=== PATIENT | female | born 1980 | race Caucasian/White ===

== ENCOUNTER → 2016-11-17 | Outpatient (CLI) | payer BC ==
[2016-11-17 16:39] VITALS: BP 120/72
== END ==
LOC: MHUC 15:54
PROVIDERS: ATTEND Physician Assistant
DX: H65.03 Acute serous otitis media, bilateral (principal); J11.1 Influenza due to unidentified influenza virus with other respiratory manifestations
CPT/HCPCS: 99213

== ENCOUNTER → 2016-11-21 | Outpatient (CLI) | payer BC ==
[2016-11-21 13:46] VITALS: BP 112/88
== END ==
LOC: MHUC 13:24
PROVIDERS: ATTEND Nurse Practitioner
DX: H66.001 Acute suppurative otitis media without spontaneous rupture of ear drum, right ear (principal)
CPT/HCPCS: 99213

== ENCOUNTER → 2017-01-27 | Outpatient (CLI) | payer BC ==
[~2017-01-27] MED LIST: AMOX875T2 PO; AZIT250T81 PO; CODE-54 PO; FLUT16SP NS; NO HOME MEDICATIONS; PRED20TA PO
[2017-01-27 13:00] VITALS: BP 119/85
--- NOTE | 2017-01-27 13:00 | Urgent Care T Sheet Gen (E) ---
Intake General Temperature (Fahrenheit): 99.3 Pulse: 83 Blood Pressure Systolic: 119 Blood Pressure Diastolic: 85 Respirations: 20 SPO2: 96 Description of Symptoms Patient presents with illness since Thursday. Notes chest congestion, cough which is worse at night, malaise. Has felt feverish today. Been taking Sudafed for congestion. History of Present Illness Allergies: Coded Allergies: morphine (Unverified Allergy, Unknown, ITCHING, 02/10/14) Home Meds Active Scripts Prednisone 20 Mg [id number] Mg PO DAILY #6 TAB Prov:ASHLEY MOORE 01/27/17 Azithromycin (Zithromax Z-Arnulfo)6 Tab/Pkt [id number] Mg PO SEE INSTRUCTIONS #6 TAB Ref 0 Day One: Take 2 tablets by mouth Days Two-Five: Take 1 tablet by mouth Prov:ASHLEY MOORE 01/27/17 Fluticasone Propionate 16 Gm [place].susp16 Gm NS DAILY #1 BTL 2 sprays each nare x 7 days Prov:SKYLER BELTRAN APRN () 11/21/16 Amoxicillin 875 Mg Hzshia448 Mg PO BID #20 TAB Ref 0 Prov:SKYLER BELTRAN APRN () 11/21/16 Azithromycin (Zithromax Z-Arnulfo)6 Tab/Pkt [id number] Mg PO SEE INSTRUCTIONS #6 TAB Ref 0 Day One: Take 2 tablets by mouth Days Two-Five: Take 1 tablet by mouth Prov:ASHLEY MOORE 11/17/16 Azithromycin (Zithromax Z-Arnulfo)6 Tab/Pkt [id number] Mg PO SEE INSTRUCTIONS #6 TAB Ref 0 Day One: Take 2 tablets by mouth Days Two-Five: Take 1 tablet by mouth Prov:ASHLEY MOORE 05/14/16 Acetaminophen/Codeine (Tylenol W/Codeine #3 (300mg/30mg))1 Tab Tablet1 Tab PO q6 hrs PRN PAIN #10 Prov:LARISA MICHELLE DO 02/10/14 Reported Medications No Home Medications Ea As Needed 02/10/14 Respiratory Constitutional Symptoms: Fever Malaise EENTM: No symptoms reported Respiratory: Cough Short of breath Wheezing Cardiovascular: No symptoms reported Gastrointestinal/Abdominal: No symptoms reported All Other Systems Reviewed Remaining Systems: All other systems reviewed with negative findings Past Miueohr-Mtqcbx-Jrwgre Hx Patient's Social History Alcohol Use: Denies Use Surgeries/Hospitalizations Hospitalization/Surgery Hx: TUBES TIED Respiratory Respiratory History: None Cardiovascular Cardiovascular History: None Reproductive System Sexually Transmitted Diseases: No Gastrointestinal GI/Endocrine History: None Diabetes Diabetes: No HEENT Impaired Vision: Contacts Hearing Impaired: None Psychosocial Behavior Disorders: None Physical Exam Physical Exam General Appearance: WD/WN No apparent distress Eyes, Ears, Nose, Throat Ex: TMs normal Pharynx normal Other (nose is clear) Neck Exam: SuppleNo Lymphadenopathy Respiratory Exam: Rhonchi Wheezes Cardiovascular Exam: Regular rate, rhythm Departure Urgent Care Impression Impression: Primary Impression: Bronchitis Additional Impression: Wheezes Departure Disposition: HOME OR SELF-CARE Condition: Stable Referrals: FEROZ GONZALEZ MD (PCP) Additional Instructions: I have started the patient on Zpak for infection and Prednisone for inflammation /wheezing. No NSAIDs while on steroid, Tylenol as needed for fever and aches Rest. Fluids Return as needed Patient understands DC instructions. All questions were answered. Scripts Prednisone 20 Mg [id number] Mg PO DAILY #6 TAB Prov:ASHLEY MOORE 01/27/17 Azithromycin (Zithromax Z-Arnulfo)6 Tab/Pkt [id number] Mg PO SEE INSTRUCTIONS #6 TAB Ref 0 Day One: Take 2 tablets by mouth Days Two-Five: Take 1 tablet by mouth Prov:ASHLEY MOORE 01/27/17 End of report . ASHLEY MOORE January 27, 2017 12:55
== END ==
LOC: MHUC 12:39
PROVIDERS: ATTEND Physician Assistant
DX: J40 Bronchitis, not specified as acute or chronic (principal); R06.2 Wheezing
CPT/HCPCS: 99213